=== PATIENT | male | born 1990 | race Two or more races ===

== ENCOUNTER 2020-02-23 12:20 | Inpatient (IN) | payer MEDICAID, OTHER ==
[~2020-02-23] VITALS: Ht 177.8 cm; Wt 56.8 kg
[2020-02-23 13:29] LABS: BASOPHILS % (AUTO) 0.6 % (0.0-2.0); EOSINOPHILS % (AUTO) 0.8 % (1.0-6.0); HEMATOCRIT 43.7 % (41-53); HEMOGLOBIN 14.8 g/dL (13.5-17.5); LYMPHOCYTES # (AUTO) 2.2 K/uL (1.0-4.8); LYMPHOCYTES % (AUTO) 31.3 % (22.0-44.0); MEAN CORPUSCULAR HEMOGLOBIN 29.3 pg (26.0-34.0); MEAN CORPUSCULAR HGB CONC 33.8 G/dL (31.0-37.0); MEAN CORPUSCULAR VOLUME 87 fL (80-100); MONOCYTES # (AUTO) 0.9 K/uL (0.1-1.0); MONOCYTES % (AUTO) 13.3 % (2.0-9.0); NEUTROPHILS # (AUTO) 3.8 K/uL (1.8-7.7); PLATELET COUNT (AUTO) 207 K/uL (150-450); RED BLOOD CELL COUNT(AUTO) 5.04 MIL/uL (4.50-5.90); RED CELL DISTRIBUTION WIDTH 14.3 % (11.5-14.5)
[2020-02-23 13:50] LABS: ANION GAP 10 mmol/L (8-16); CALCIUM, TOTAL 8.8 mg/dL (8.8-10.5); CARBON DIOXIDE 28 mmol/L (22-29); CHLORIDE 106 mmol/L (98-107); CREATININE 0.95 mg/dL (0.60-1.30); GLOMERULAR FILTR. RATE CALC > 60 mL/min (>60); GLUCOSE,RANDOM 103 mg/dL (70-110); POTASSIUM 3.6 mmol/L (3.5-5.1); SODIUM SERUM 144 mmol/L (136-145); UREA NITROGEN, BLOOD 13 mg/dL (7-18)
[2020-02-23 13:52] LABS: ALANINE AMINOTRANSFERASE 22 U/L (12-78); ALKALINE PHOSPHATASE 101 U/L (46-116); ASPARTATE AMINOTRANSFERASE 15 U/L (15-37); BILIRUBIN,TOTAL 0.5 mg/dL (0.1-1.0); TOTAL PROTEIN, SERUM 8.8 g/dL (6.4-8.2)
[2020-02-23 14:30] LABS: AMPHET/METH SCREEN,URINE POSITIVE (NEGATIVE); BARBITURATE SCREEN, URINE NEGATIVE (NEGATIVE); BENZODIAZEPINES SCREEN,URINE NEGATIVE (NEGATIVE); CANNABINOID SCREEN,URINE POSITIVE (NEGATIVE); COCAINE SCREEN,URINE NEGATIVE (NEGATIVE); METHADONE SCREEN, URINE NEGATIVE (NEGATIVE); OPIATE SCREEN,URINE NEGATIVE (NEGATIVE)
[2020-02-23] MEDS: LORazepam 2 MG TABLET PO PRN (14:31)
[2020-02-23 14:32] LABS: PHENCYCLIDINE SCREEN,URINE NEGATIVE (NEGATIVE)
[2020-02-23 18:02] VITALS: BP 100/51
[2020-02-24 02:00] VITALS: BP 120/70
[2020-02-24] MEDS: LORazepam 2 MG TABLET PO PRN ×3 (02:12→17:39)
[2020-02-24] MEDS: ZOLPIDEM TARTRATE 10 MG TABLET PO PRN ×2 (02:18→21:51)
[2020-02-24 04:00] VITALS: BP 124/72
[2020-02-24] MEDS ORDERED: ACETAMINOPHEN 325 MG TABLET PO PRN (07:00)
[2020-02-24] MEDS ORDERED: DOCUSATE SODIUM 100 MG CAPSULE PO PRN (07:00)
[2020-02-24] MEDS ORDERED: CloNIDine HCL 0.1 MG TABLET PO PRN (07:00)
[2020-02-24] MEDS ORDERED: LOPERAMIDE HCL 2 MG CAPSULE PO PRN (07:00)
[2020-02-24] MEDS ORDERED: IBUPROFEN 400 MG TABLET PO PRN (07:00)
[2020-02-24] MEDS ORDERED: GuaiFENesin/D-METHORPHAN [SUGAR-FREE] 200-20MG/10 ML SYRUP UDCUP PO PRN (07:00)
[2020-02-24] MEDS ORDERED: ALBUTEROL SULFATE HFA 90 MCG/PUFF 8 GM INHALER IH PRN (07:00)
[2020-02-24] MEDS ORDERED: MAG HYDROX/AL HYDROX/SIMETH ES 30 ML SUSPENSION UDCUP PO PRN (07:00)
[2020-02-24] MEDS ORDERED: PETROLATUM,WHITE 28 GM JELLY TP PRN (07:00)
[2020-02-24] MEDS ORDERED: MAGNESIUM HYDROXIDE SUSPENSION 30 ML UDCUP PO PRN (07:00)
[2020-02-24] MEDS ORDERED: NICOTINE 14 MG/24 HOUR PATCH TD PRN (07:00)
[2020-02-24] MEDS ORDERED: ONDANSETRON HCL 4 MG TABLET PO PRN (07:00)
[2020-02-24 08:36] LABS: CHOL/HDL RATIO 4.3 (4.2-7.3)
[2020-02-24 09:30] VITALS: BP 136/70
[2020-02-24] MEDS: OLANZapine 5 MG TABLET PO SCH (16:48)
[2020-02-24 17:50] VITALS: BP 121/73
[2020-02-25 00:49] VITALS: BP 110/69
[2020-02-25] MEDS: LORazepam 2 MG TABLET PO PRN ×4 (01:56→20:59)
[2020-02-25 07:49] LABS: APPEARANCE,URINE CLEAR (CLEAR); BILIRUBIN,URINE NEGATIVE (NEGATIVE); GLUCOSE, URINE (UA) NEGATIVE (NEGATIVE); KETONES,URINE TRACE mg/dL (NEGATIVE); LEUKOCYTE ESTERASE ,URINE NEGATIVE (NEGATIVE); NITRATE,URINE NEGATIVE (NEGATIVE); OCCULT BLOOD,URINE NEGATIVE (NEGATIVE); PROTEIN,URINE NEGATIVE (NEGATIVE); UROBILINOGEN,URINE 0.2 mg/dL (<=1.0)
[2020-02-25] MEDS: OLANZapine 5 MG TABLET PO SCH ×2 (08:55→15:57)
[2020-02-25 09:43] VITALS: BP 115/67
[2020-02-25 16:00] VITALS: BP 106/65
[2020-02-25] MEDS: ZOLPIDEM TARTRATE 10 MG TABLET PO PRN (23:39)
[2020-02-26 00:32] VITALS: BP 113/67
[2020-02-26 08:47] VITALS: BP 110/72
[2020-02-26] MEDS: OLANZapine 5 MG TABLET PO SCH ×2 (08:47→17:41)
[2020-02-26] MEDS: HALOPERIDOL 5 MG TABLET PO PRN ×2 (10:40→17:41)
[2020-02-26] MEDS: LORazepam 2 MG TABLET PO PRN ×2 (10:40→17:41)
[2020-02-26 16:09] VITALS: BP 132/73
[2020-02-26] MEDS: ZOLPIDEM TARTRATE 10 MG TABLET PO PRN (20:44)
[2020-02-27 00:32] VITALS: BP 128/78
[2020-02-27 08:19] VITALS: BP 101/46
[2020-02-27] MEDS: OLANZapine 5 MG TABLET PO SCH ×2 (08:34→17:03)
[2020-02-27] MEDS: LORazepam 2 MG TABLET PO PRN (15:54)
[2020-02-27 16:14] VITALS: BP 122/83
[2020-02-28 03:19] VITALS: BP 104/74
[2020-02-28 08:19] VITALS: BP 120/78
[2020-02-28] MEDS: OLANZapine 5 MG TABLET PO SCH ×2 (08:46→16:27)
[2020-02-28] MEDS: LORazepam 2 MG TABLET PO PRN ×2 (11:00→16:27)
[2020-02-28 16:09] VITALS: BP 132/70
[2020-02-28] MEDS: ZOLPIDEM TARTRATE 10 MG TABLET PO PRN (20:23)
[2020-02-29] MEDS: LORazepam 2 MG TABLET PO PRN ×2 (03:43→08:42)
[2020-02-29 04:07] VITALS: BP 114/72
[2020-02-29] MEDS: OLANZapine 5 MG TABLET PO SCH (08:42)
[2020-02-29 08:49] VITALS: BP 116/53
[2020-02-29] MEDS ORDERED: OLAN5TAB2 PO (10:51)
== END 2020-02-29 15:00 | disposition home or self-care (01) | DRG 885 ==
LOC: EMS 12:20 → B2S 17:27 → B3A 02-25 19:30
PROVIDERS: ADMIT Psychiatry & Neurology Psychiatry; ATTEND Psychiatry & Neurology Psychiatry
DX: F29 Unspecified psychosis not due to a substance or known physiological condition (principal); R45.851 Suicidal ideations; F31.9 Bipolar disorder, unspecified; F41.9 Anxiety disorder, unspecified; K21.9 Gastro-esophageal reflux disease without esophagitis; F10.10 Alcohol abuse, uncomplicated; Y90.9 Presence of alcohol in blood, level not specified; F19.10 Other psychoactive substance abuse, uncomplicated; Z62.810 Personal history of physical and sexual abuse in childhood
CPT/HCPCS: G0480

== ENCOUNTER 2023-12-12 16:56 | Inpatient (IN) | payer MEDICAID, OTHER ==
[~2023-12-12] VITALS: Ht 180.3 cm; Wt 81.6 kg
[~2023-12-12 16:56] MED LIST: OLAN5TAB52 PO
[2023-12-12] MEDS ORDERED: LORazepam 2 MG/ML VIAL ONE (17:11)
[2023-12-12] MEDS ORDERED: MIDAZOLAM HCL 5 MG/ML VIAL ONE (17:14)
[2023-12-12] MEDS ORDERED: ChlorproMAZINE HCL 50 MG/2 ML AMP ONE (17:20)
[2023-12-12] MEDS: LORazepam 2 MG/ML VIAL IVP ONE (17:22)
[2023-12-12] MEDS: MIDAZOLAM HCL 5 MG/ML VIAL IM ONE (17:22)
[2023-12-12] MEDS ORDERED: ChlorproMAZINE HCL 50 MG/2 ML AMP IM ONE (17:30)
[2023-12-12] MEDS: ChlorproMAZINE HCL 50 MG/2 ML AMP IM ONE (17:37)
[2023-12-12 18:08] LABS: BASOPHILS % (AUTO) 0.4 % (0.0-2.0); EOSINOPHILS % (AUTO) 1.1 % (1.0-6.0); HEMATOCRIT 42.5 % (41-53); HEMOGLOBIN 14.3 g/dL (13.5-17.5); LYMPHOCYTES # (AUTO) 2.6 K/uL (1.0-4.8); LYMPHOCYTES % (AUTO) 19.9 % (22.0-44.0); MEAN CORPUSCULAR HEMOGLOBIN 30.3 pg (26.0-34.0); MEAN CORPUSCULAR HGB CONC 33.5 G/dL (31.0-37.0); MEAN CORPUSCULAR VOLUME 90 fL (80-100); MONOCYTES # (AUTO) 1.2 K/uL (0.1-1.0); MONOCYTES % (AUTO) 9.3 % (2.0-9.0); NEUTROPHILS # (AUTO) 9.1 K/uL (1.8-7.7); NEUTROPHILS % (AUTO) 69.3 % (40.0-70.0); PLATELET COUNT (AUTO) 159 K/uL (150-450); RED BLOOD CELL COUNT(AUTO) 4.71 MIL/uL (4.50-5.90); RED CELL DISTRIBUTION WIDTH 14.9 % (11.5-14.5); WHITE BLOOD COUNT (AUTO) 13.2 K/uL (4.5-11.0)
[2023-12-12 18:14] LABS: COVID AG,FIA SOURCE NASAL SWAB
[2023-12-12 18:18] LABS: PH,URINE DRUG SCREEN 5.5 (5.0-8.0)
[2023-12-12 18:23] LABS: ALCOHOL, URINE DRUG SCREEN NEGATIVE (NEGATIVE); AMPHET/METH SCREEN,URINE POSITIVE (NEGATIVE); BARBITURATE SCREEN, URINE NEGATIVE (NEGATIVE); BENZODIAZEPINES SCREEN,URINE POSITIVE (NEGATIVE); CANNABINOID SCREEN,URINE POSITIVE (NEGATIVE); COCAINE SCREEN,URINE NEGATIVE (NEGATIVE); METHADONE SCREEN, URINE NEGATIVE (NEGATIVE); OPIATE SCREEN,URINE NEGATIVE (NEGATIVE); PHENCYCLIDINE SCREEN,URINE POSITIVE (NEGATIVE)
[2023-12-12 18:23] LABS: ANION GAP 13 mmol/L (8-16); CALCIUM, TOTAL 8.8 mg/dL (8.8-10.5); CARBON DIOXIDE 24 mmol/L (22-29); CHLORIDE 104 mmol/L (98-107); CREATININE 1.19 mg/dL (0.60-1.30); GLOMERULAR FILTR. RATE CALC > 60 mL/min (>60); GLUCOSE,RANDOM 109 mg/dL (70-110); POTASSIUM 3.2 mmol/L (3.5-5.1); SODIUM SERUM 141 mmol/L (136-145); UREA NITROGEN, BLOOD 11 mg/dL (7-18)
[2023-12-12 18:27] LABS: ALCOHOL, BLOOD (SERUM) < 3 mg/dL (0-10)
[2023-12-12 18:29] LABS: ALANINE AMINOTRANSFERASE 33 U/L (12-78); ALBUMIN 4.1 g/dL (3.4-5.0); ALKALINE PHOSPHATASE 105 U/L (46-116); ASPARTATE AMINOTRANSFERASE 23 U/L (15-37); BILIRUBIN,TOTAL 0.8 mg/dL (0.1-1.0); TOTAL PROTEIN, SERUM 8.7 g/dL (6.4-8.2)
[2023-12-12 18:31] LABS: SARS-COV2 (COVID) ANTIGEN,FIA Negative (Negative)
[2023-12-13] MEDS: POTASSIUM CHLORIDE 20 MEQ ER TABLET PO ONE (01:17)
[2023-12-13 05:44] VITALS: BP 130/81; PULSE 106; RESP 18; TEMP 97.7
[2023-12-13] MEDS: LORazepam 2 MG TABLET PO PRN (09:18)
[2023-12-13] MEDS ORDERED: MAG HYDROX/ALUMINUM HYD/SIMETH ES 30 ML SUSPENSION UDCUP PO PRN (12:00)
[2023-12-13] MEDS ORDERED: DOCUSATE SODIUM 100 MG CAPSULE PO PRN (12:00)
[2023-12-13] MEDS ORDERED: ACETAMINOPHEN 325 MG TABLET PO PRN (12:00)
[2023-12-13] MEDS ORDERED: LOPERAMIDE HCL 2 MG CAPSULE PO PRN (12:00)
[2023-12-13] MEDS ORDERED: ALBUTEROL SULFATE HFA 90 MCG/PUFF 8 GM INHALER IH PRN (12:00)
[2023-12-13] MEDS ORDERED: MAGNESIUM HYDROXIDE SUSPENSION 30 ML UDCUP PO PRN (12:00)
[2023-12-13] MEDS ORDERED: ONDANSETRON HCL 4 MG TABLET PO PRN (12:00)
[2023-12-13] MEDS ORDERED: PETROLATUM,WHITE 28 GM JELLY TP PRN (12:00)
[2023-12-13] MEDS ORDERED: OMEPRAZOLE 20 MG CAPSULE PO PRN (12:00)
[2023-12-13] MEDS ORDERED: IBUPROFEN 600 MG TABLET PO PRN (12:00)
[2023-12-13] MEDS ORDERED: BENZOCAINE/MENTHOL LOZENGE PO PRN (12:00)
[2023-12-13] MEDS ORDERED: CloNIDine HCL 0.1 MG TABLET PO PRN (12:00)
[2023-12-13] MEDS ORDERED: BACITRACIN 28 GM OINTMENT TP PRN (12:00)
[2023-12-13 13:50] VITALS: RESP 16
[2023-12-13] MEDS: OLANZapine 10 MG TABLET PO SCH (20:40)
[2023-12-13 21:58] VITALS: BP 122/70; PULSE 73; RESP 18; TEMP 96.9
[2023-12-14 08:41] VITALS: BP 119/71; PULSE 106; RESP 17; TEMP 97.9; O2SAT 99
[2023-12-14] MEDS: NICOTINE 21 MG/24 HOUR PATCH TD SCH (08:44)
[2023-12-14] MEDS: HALOPERIDOL 5 MG TABLET PO PRN (08:44)
[2023-12-14] MEDS: ZOLPIDEM TARTRATE 10 MG TABLET PO PRN (21:05)
[2023-12-14 21:36] VITALS: BP 115/72; PULSE 93; RESP 16; TEMP 97.8; O2SAT 98
[2023-12-15 08:39] VITALS: BP 126/60; PULSE 78; RESP 17; TEMP 97.6; O2SAT 98
[2023-12-15] MEDS: LITHIUM CARBONATE 300 MG CAPSULE PO SCH (08:45)
[2023-12-15] MEDS: DIVALPROEX SODIUM 500 MG DR TABLET PO SCH (08:45)
[2023-12-15] MEDS ORDERED: OLAN10TA74 PO (17:06)
[2023-12-15] MEDS ORDERED: DIVA-112 PO (17:06)
[2023-12-15] MEDS ORDERED: LITH300C3 PO (17:07)
[2023-12-31] MEDS ORDERED: ARIPiprazole ER SUSPENSION 400 MG PRE-FILLED DUAL CHAMBER SYRINGE IM SCH (09:00)
== END 2023-12-15 18:50 | disposition home or self-care (01) | DRG 750 ==
LOC: EMS 16:56 → B3A 12-13 01:04 → EMS 12-13 02:55 → B3A 12-13 02:55
PROVIDERS: ADMIT Psychiatry & Neurology Psychiatry; ATTEND Psychiatry & Neurology Psychiatry
DX: F25.9 Schizoaffective disorder, unspecified (principal); F10.10 Alcohol abuse, uncomplicated; F31.9 Bipolar disorder, unspecified; F16.10 Hallucinogen abuse, uncomplicated; K59.00 Constipation, unspecified; F41.9 Anxiety disorder, unspecified; K21.9 Gastro-esophageal reflux disease without esophagitis; Z20.822 Contact with and (suspected) exposure to COVID-19; T50.902A Poisoning by unspecified drugs, medicaments and biological substances, intentional self-harm, initial encounter; G47.00 Insomnia, unspecified; Y92.89 Other specified places as the place of occurrence of the external cause
CPT/HCPCS: 80053; 80307; 85025; 99291; G0480; J2060; J2250; J3230